=== PATIENT | male | born 1960 | race Caucasian/White ===

== ENCOUNTER 2021-08-17 18:26 | Emergency (ER) | payer MEDICARE, SELFPAY ==
[2021-08-17 19:26] VITALS: BP 147/85; PULSE 81; RESP 16; TEMP 36.6; O2SAT 100
--- NOTE | 2021-08-17 20:24 | ED.URI ---
HPI - URI/Sore Throat General Chief Complaint: Upper Respiratory Infection Stated Complaint: deep cough Time Seen by Provider: 08/17/21 20:20 Source: patient and RN notes reviewed Mode of arrival: ambulatory Limitations: no limitations History of Present Illness HPI Narrative: Patient presents today with a 3-day history of chest congestion and cough, fever up to 101. Denies sore throat, congestion, rhinorrhea, shortness of breath. He has been taking Tessalon Perles and Robitussin with some relief. He had a positive COVID-19 exposure from his [id number]. MD elicited complaint: fever, cough and nasal congestion Related Data Home Medications Medication Instructions Recorded Confirmed clonazepam 0.5 mg PO DAILY 08/17/21 08/17/21 cyclobenzaprine 5 mg PO TID PRN 08/17/21 08/17/21 fluoxetine 20 mg PO DAILY 08/17/21 08/17/21 hydrocodone-acetaminophen 1 tablet PO TID PRN 08/17/21 08/17/21 lamotrigine 200 mg PO TID 08/17/21 08/17/21 simvastatin 20 mg PO DAILY 08/17/21 08/17/21 Allergies Allergy/AdvReac Type Severity Reaction Status Date / Time No Known Allergies Allergy Verified 08/17/21 20:23 Review of Systems Review of Systems: CONSTITUTIONAL: Denies body aches, chills, or sweats.+ Fever EYES: Denies visual changes, redness, or discharge. ENT: Denies rhinorrhea, sore throat, or otalgia.+ Congestion CARDIOVASCULAR: Denies chest pain, palpitations, or edema. RESPIRATORY: Denies dyspnea.+ Cough, chest congestion GASTROINTESTINAL: Denies abdominal pain, nausea, vomiting, or diarrhea. GENITOURINARY: Denies dysuria or hematuria. SKIN: Denies rash, itching, or wounds. MUSCULOSKELETAL: Denies back pain, joint pain, or myalgia. NEUROLOGIC: Denies headache, numbness, tingling, or weakness. PSYCH: Denies depression or anxiety. PMFSH Comments At time of signature, I have reviewed and agree with nursing past medical, surgical, social and family history unless otherwise noted. Please see nursing chart for further information. There is no relevant family history pertinent to the presenting complaint Exam Narrative: GENERAL: Well-appearing, well-nourished, and in no acute distress. HEAD: Normocephalic, atraumatic. EYES: EOMI. No redness or drainage. Conjunctivae normal. ENT: Mucous membranes pink and moist. Nares clear. No rhinorrhea. TMs normal bilaterally. Throat normal. Uvula midline. NECK: Normal AROM. Supple. No lymphadenopathy. CHEST: No respiratory distress. Clear to auscultation. HEART: Regular rate and rhythm. No murmur appreciated. Normal peripheral pulses. EXTREMITIES: Normal range of motion. No edema. SKIN: Warm, dry, no rash. Capillary refill normal. Normal skin turgor. NEURO: No focal deficits. Alert and oriented x3. Gait steady. PSYCH: Normal affect. No signs of depression or anxiety. Course Course Level of Care: Express Care Visit Vital Signs Vital signs: Vital Signs Temperature 98 F 08/17/21 19:26 Pulse Rate 81 08/17/21 19:26 Respiratory Rate 16 08/17/21 19:26 Blood Pressure 147/85 H 08/17/21 19:26 Pulse Oximetry 100 08/17/21 19:26 Temperature 98 F 08/17/21 19:26 Pulse Rate 81 08/17/21 19:26 Respiratory Rate 16 08/17/21 19:26 Blood Pressure 147/85 H 08/17/21 19:26 Pulse Oximetry 100 08/17/21 19:26 Reviewed. Pt has been instructed to follow up with his PCP regarding his elevated blood pressure today. MDM - URI/Sore Throat Differential Diagnosis Differential diagnosis: Likely upper respiratory infection, viral infection, bronchitis and other (COVID-19) Lab Data Attestation: I reviewed the patient's lab results. Labs: Lab Results 08/17/21 Range/Units 19:30 POC SARS CoV-2 Ag Positive (Negative) Critical Care Time Critical Care Time Critical Care Time: No Discharge Plan Discharge Clinical Impression: COVID-19 Patient Disposition: Home, Self-Care Condition: Stable Instructions: COVID-19 (Coronavirus Disease 2019) (ED) Ad
== END 2021-08-17 20:30 | disposition home or self-care (01) ==
PROVIDERS: Emergency Provider Nurse Practitioner; PCP Internal Medicine
DX: U07.1 COVID-19 (principal); G40.909 Epilepsy, unspecified, not intractable, without status epilepticus; E78.00 Pure hypercholesterolemia, unspecified; M48.00 Spinal stenosis, site unspecified
CPT/HCPCS: 87426; 99213; C9803; G0463

== ENCOUNTER 2022-02-07 08:16 | Emergency (ER) | payer MEDICARE, SELFPAY ==
[2022-02-07 08:22] VITALS: BP 138/95; PULSE 75; RESP 20; TEMP 37.1; O2SAT 100
--- NOTE | 2022-02-07 08:39 | ED.URI ---
HPI - URI/Sore Throat General Chief Complaint: Upper Respiratory Infection Stated Complaint: Cough/Sore Throat Time Seen by Provider: 02/07/22 08:40 Source: patient and RN notes reviewed Mode of arrival: ambulatory Limitations: no limitations History of Present Illness HPI Narrative: 61-year-old male presented for complaints of sore throat. He endorses COVID exposure 6 days ago, patient's symptoms started 2 days ago. Denies cough, shortness of breath, nausea, vomiting, diarrhea, fevers or chills. He is not taking anything for symptoms. MD elicited complaint: cough Related Data Home Medications Medication Instructions Recorded Confirmed clonazepam 0.5 mg tablet 0.5 mg PO DAILY 08/17/21 08/17/21 cyclobenzaprine 5 mg tablet 5 mg PO TID PRN Muscle Pain 08/17/21 08/17/21 fluoxetine 20 mg capsule 20 mg PO DAILY 08/17/21 08/17/21 hydrocodone 5 mg-acetaminophen 325 1 tablet PO TID PRN Pain 08/17/21 08/17/21 mg tablet lamotrigine 200 mg tablet 200 mg PO TID 08/17/21 08/17/21 simvastatin 20 mg tablet 20 mg PO DAILY 08/17/21 08/17/21 Allergies Allergy/AdvReac Type Severity Reaction Status Date / Time No Known Allergies Allergy Verified 02/07/22 08:42 Review of Systems Review of Systems: CONSTITUTIONAL: Denies malaise, chills, sweats, fever EYES: Denies visual changes, redness, or discharge ENT: Reports rhinorrhea, congestion, sore throat CARDIOVASCULAR: Denies chest pain, palpitations, edema RESPIRATORY: Denies dyspnea GASTROINTESTINAL: Denies abdominal pain, nausea, vomiting, diarrhea SKIN: Denies rash or itching MUSCULOSKELETAL: Denies Myalgia NEUROLOGIC: Denies headache Exam Narrative: GENERAL: Ill-appearing, nontoxic EYES: conjunctivae clear ENT: Mucous membranes moist. CHEST: Clear to auscultation, breath sounds equal. No wheezing, rhonchi, rales, or stridor. HEART: Regular rate and rhythm. No murmur heard. SKIN: Warm, dry, no rash. NEURO: Alert and oriented x3. PSYCH: Normal mood and affect Course Course Emergency Course: Patient is aware of diagnosis, understands and agrees to treatment plan. Anticipatory guidance given. Patient agrees to follow-up as directed and is aware of reasons to seek care at the emergency department. Portions of this record may have been created with voice recognition software Level of Care: Express Care Visit Vital Signs Vital signs: Vital Signs Temperature 98.7 F 02/07/22 08:22 Pulse Rate 75 02/07/22 08:22 Respiratory Rate 20 02/07/22 08:22 Blood Pressure 138/95 H 02/07/22 08:22 Pulse Oximetry 100 02/07/22 08:22 Oxygen Delivery Room Air 02/07/22 08:22 Temperature 98.7 F 02/07/22 08:22 Pulse Rate 75 02/07/22 08:22 Respiratory Rate 20 02/07/22 08:22 Blood Pressure 138/95 H 02/07/22 08:22 Pulse Oximetry 100 02/07/22 08:22 Oxygen Delivery Room Air 02/07/22 08:22 reviewed MDM - URI/Sore Throat MDM Narrative Medical decision making narrative: Strep negative, COVID positive. Advised supportive measures and signs/symptoms to go to the ER. Pt is appropriate for outpt treatment and f/u. Differential Diagnosis Differential diagnosis: Likely upper respiratory infection, sinusitis, viral infection and pharyngitis Lab Data Labs: Strep Screen Presumptive Negative *(Reference Range: Negative)* Discharge Plan Discharge Clinical Impression: COVID-19 Patient Disposition: Home, Self-Care Condition: Stable Instructions: Antibiotic Form, COVID-19 (Coronavirus Disease 2019) (ED) Additional Instructions: Your rapid COVID test was positive today. The following recommendations have been made by the CDC and local Health Departments, regarding COVID-19: -Those individuals with mild cases of COVID-19 can generally be discontinued from isolation 5 days AFTER the onset of symptoms AND the resolution of fever for 24hrs (without the use of fever-reducing medications)* -
== END 2022-02-07 09:00 | disposition home or self-care (01) ==
PROVIDERS: Emergency Provider Nurse Practitioner Family; PCP Internal Medicine
DX: U07.1 COVID-19 (principal)
CPT/HCPCS: 87081; 87426; 87880; 99213; C9803; G0463

== ENCOUNTER 2022-02-26 10:01 | Emergency (ER) | payer MEDICARE, SELFPAY ==
--- NOTE | ~2022-02-26 | XR_ITS ---
EXAMINATION: XR chest 1V portable 02/26/2022 11:08 INDICATION: Shortness of breath PROCEDURE: AP portable chest COMPARISON: No prior studies for comparison. FINDINGS: The lungs are clear. The cardiomediastinal silhouette is within normal limits. There are no pleural effusions. There is no pneumothorax suspected. IMPRESSION: 1: NO ACUTE CARDIOPULMONARY DISEASE. Reviewed, dictated and finalized at location L.
--- NOTE | ~2022-02-26 | CT_ITS ---
EXAMINATION: CT BRAIN W/O DATE: 02/26/2022 11:08 INDICATION: Near syncope. Head injury. Diaphoresis. TECHNIQUE: Computed tomography (CT) of the head was performed without intravenous contrast. The dose- length product was 529.67 mGy-cm. Automated exposure control and iterative reconstruction technique w ere employed. COMPARISON: No prior studies for comparison. FINDINGS: There is encephalomalacia of the frontal lobes bilaterally, likely posttraumatic. No acute infarction, hemorrhage, mass or mass effect. There are surgical changes of the lateral wall of the ri ght orbit. No ventriculomegaly or midline shift. Midline sagittal images demonstrate a normal corpus callosum, c raniovertebral junction and sella turcica. Basilar cisterns are patent. Paranasal sinuses and mastoids are pneumatized. No depressed skull fractures. IMPRESSION: 1. No acute intracranial abnormality. 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 Reviewed, dictated and finalized at location L.
--- NOTE | ~2022-02-26 | CT_ITS ---
EXAMINATION: CT lumbar spine wo con DATE: 02/26/2022 11:08 INDICATION: Chronic low back pain TECHNIQUE: Computed tomography (CT) of the lumbar spine was performed without intravenous contrast. A utomated exposure control and iterative reconstruction technique were employed. The dose-length produ ct was 513.80 mGy-cm. COMPARISON: None FINDINGS: Normal alignment. Chronic appearing minimal anterior wedging at T11 and T12. No acute fracture. Promi nent Schmorl's node along the anterior aspect of the superior endplate of L4. Smaller Schmorl's nodes along the inferior endplate of L3 and at both sides of the L4-L5 disc space. There is a 2.[address] well-defined lytic lesion occupying a significant portion of the posterior aspect of the L5 verte bral body with narrow zone of transition and central macroscopic fat attenuation strongly favoring a benign etiology potentially related to an old Schmorl's node arising from the superior endplate. Josephine re disc height loss with Modic type III chronic endplate changes at L4-L5. Moderate disc height loss at L2-L3 and L3-L4. Mild disc height loss at T10-T11 and T11-T12. Multiple diverticula along the visu alized sigmoid colon without adjacent inflammatory change to suggest diverticular colitis. Paraverteb ral soft tissues are unremarkable. The following disc levels are specifically discussed: T10-T11: Disc is minimally bulging. There is mild bilateral facet joint osteoarthritis. There is no n eural foraminal stenosis. There is no central canal stenosis. T111-T2: Disc is minimally bulging. There is moderate left and mild to moderate right facet joint ost eoarthritis. There is no neural foraminal stenosis. There is no central canal stenosis. T12-L1: Disc is minimally bulging. There is moderate bilateral facet joint osteoarthritis. There is n o neural foraminal stenosis. There is no central canal stenosis. L1-L2: Disc is mildly bulging. There is moderate bilateral facet joint osteoarthritis. There is mild right neural foraminal stenosis. There is mild central canal stenosis. L2-L3: Disc is bulging. There is left and moderate right facet joint osteoarthritis. There is moderat e bilateral neural foraminal stenosis. There is mild to moderate central canal stenosis. L3-L4: Disc is bulging. There is mild bilateral facet joint osteoarthritis. There is mild bilateral n eural foraminal stenosis. There is mild central canal stenosis. L4-L5: Disc is bulging. There is mild bilateral facet joint osteoarthritis. There is moderate bilater al neural foraminal stenosis. There is mild to moderate central canal stenosis. L5-S1: Minimal central disc protrusion. There is mild bilateral facet joint osteoarthritis. There is mild left and mild to moderate right neural foraminal stenosis. There is no central canal stenosis. IMPRESSION: 1. Lumbar spondylosis, severe at L4-L5 and otherwise mild to moderate. Reviewed, dictated and finalized at location A.
[2022-02-26 10:09] VITALS: BP 108/70; PULSE 65; RESP 20; TEMP 36.6; O2SAT 99
--- NOTE | 2022-02-26 10:23 | ECG_ITS ---
Measurements Intervals [place] Rate: 70 P: 76 NC: 166 QRS: 83 QRSD: 108 T: 68 QT: 411 QTc: 443 Interpretive Statements SINUS RHYTHM BASELINE ARTIFACT- I, III, AVL NORMAL ECG Electronically Signed On 02-26-2022 16:27:44 CDT by Maverick Oakley D.O.
--- NOTE | 2022-02-26 10:30 | ED.BACK ---
HPI - Back Pain/Injury General Chief Complaint: Back Pain/Injury Stated Complaint: [facility] Time Seen by Provider: 02/26/22 10:05 Source: patient, EMS and RN notes reviewed Mode of arrival: EMS Limitations: no limitations History of Present Illness MD elicited complaint: back pain and other (pt was very light headed and almost fainted. no acute chest pain or SOB.) Pertinent past history: prior back pain Onset (ago): day(s) (3) Severity: moderate Pain scale (0-10): 6 Similar Symptoms Previously: Yes Quality: dull and aching Location: lumbar spine Radiation: none Exacerbating factors: movement Relieving factors: medication Associated symptoms: denies other symptoms Work related injury: No Related Data Home Medications Medication Instructions Recorded Confirmed clonazepam 0.5 mg tablet 0.5 mg PO DAILY 08/17/21 02/26/22 cyclobenzaprine 5 mg tablet 5 mg PO TID PRN Muscle Pain 08/17/21 02/26/22 fluoxetine 20 mg capsule (Prozac) 20 mg PO DAILY 08/17/21 02/26/22 hydrocodone 5 mg-acetaminophen 325 1 tablet PO TID PRN Pain 08/17/21 02/26/22 mg tablet lamotrigine 200 mg tablet 200 mg PO TID 08/17/21 02/26/22 simvastatin 20 mg tablet 20 mg PO DAILY 08/17/21 02/26/22 fluoxetine 40 mg capsule 40 mg PO DAILY 02/26/22 02/26/22 Allergies Allergy/AdvReac Type Severity Reaction Status Date / Time No Known Allergies Allergy Verified 02/26/22 10:43 Review of Systems Review of Systems: All systems reviewed & are unremarkable except as noted in HPI and below Constitutional: Constitutional: Reports no additional constitutional complaints Eyes: Eyes: Reports no additional eye complaints ENT: Reports system reviewed and no additional complaints, except as documented Cardiovascular: Cardiovascular: Reports no additional cardiovascular complaints Respiratory: Respiratory: Reports no additional respiratory complaints Gastrointestinal: Gastrointestinal: Reports no additional gastrointestinal complaints Musculoskeletal: Musculoskeletal: Reports back pain Integumentary/Breasts: Skin/Breast: Reports system reviewed and no additional complaints, except as docu Neurologic: Reports system reviewed and no additional complaints, except as documented Psychiatric: Psychiatric: Reports no additional psychiatric complaints Endocrine: Endocrine: Reports no additional endocrine complaints Hematologic/Lymphatic: Hematologic/Lymphatic: Reports no additional hematologic/lymphatic complaints Allergic/Immunologic: Allergic/Immunologic: Reports no additional allergic/immunologic complaints PMFSH Past Medical History Medical History Back ache Exam Const: General: healthy appearing and no acute distress Nutritional Appearance: well nourished Orientation/consciousness: patient oriented x3 Limitations: no limitations HENMT: Head: normal to inspection Ears: external ears normal, TM's normal bilaterally and EAC's normal General nose exam: Normal external nose present and Normal nares present Face and sinus: normal facial exam and sinuses nontender Mouth: Yes Normal oral and palatal mucosa present and Yes moist mucous membranes Teeth and gingiva: dentition normal Throat: posterior oropharynx normal Eyes: Conjunctivae: conjunctivae normal Pupils: Equal, round and reactive pupils present EOM: EOMs intact bilaterally Neck: Neck: normal visual inspection, no lymphadenopathy and no meningeal signs Chest: Chest palpation & inspection: normal inspection of the chest Resp: Effort & Inspection: normal respiratory effort Auscultation: clear to auscultation bilaterally Cardio: Rate: regular rate Rhythm: regular rhythm GI: GI Palp: Yes Soft to palpation and No Tenderness to palpation present (GI) Auscultation: normal bowel sounds : General: Yes bladder normal to palpation and Yes no CVA tenderness Back/Spine/Pelvis: Back: no CVA tenderness Other: minimally tend
[2022-02-26 10:33] VITALS: BP 114/77; PULSE 67; RESP 20; TEMP 36.6; O2SAT 99
[2022-02-26 10:44] LABS: Basophils Absolute Auto 0.02 K/mm3 (0.00-0.10); Basophils Percent Auto 0.3 % (0.0-1.0); Eosinophils Absolute Auto 0.01 K/mm3 (0.02-0.50); Eosinophils Percent Auto 0.2 % (1.0-6.0); Hematocrit 35.9 % (40.0-54.0); Hemoglobin 11.8 g/dL (14.0-18.0); Immature Granulocyte Absolute 0.02 K/mm3 (0.00-0.00); Immature Granulocyte Percent A 0.3 % (0.0-0.0); Lymphocytes Absolute Auto 0.66 K/mm3 (1.10-4.50); Lymphocytes Percent Auto 11.1 % (18.0-42.0); Mean Corpuscular HGB Conc 32.9 g/dL (32.0-36.0); Mean Corpuscular Hemoglobin 31.2 pg (27.0-31.0); Mean Platelet Volume 9.6 fl (8.7-11.0); Monocytes Absolute Auto 0.53 K/mm3 (0.10-0.90); Monocytes Percent Auto 8.9 % (2.0-11.0); Neutrophils Absolute Auto 4.7 K/mm3 (1.7-7.2); Neutrophils Percent Auto 79.2 % (50.0-70.0); Platelet Count Result 284 K/mm3 (150-420); Red Blood Count 3.78 M/mm3 (4.70-6.10); Red Cell Distribution Width 12.8 % (11.6-14.4)
[2022-02-26 10:56] LABS: Appearance Urine Clear (Clear); Bilirubin Urine Negative (Negative); Color Urine Light Yellow (Yellow); Glucose Urine UA Negative (Negative); Ketones Urine Negative (Negative); Leukocyte Esterase Ur Negative (Negative); Nitrate Urine Negative (Negative); Protein Urine Negative (Negative); Specific Grav Ur 1.025 (1.010-1.020); Urobilinogen Urine 0.2 mg/dL (0.2-1.0)
[2022-02-26 11:00] LABS: Add Urine Microscopic? YES; Blood Urine Trace-lysed (Negative); RBC Urine 0-2 /hpf (0-2); WBC Urine None seen /hpf (0-3)
[2022-02-26 11:01] LABS: Bacteria Urine Trace /hpf; Mucus Urine Heavy /lpf
[2022-02-26 11:04] LABS: Lactic Acid Reflex 1.8 mmol/L (0.4-2.0)
[2022-02-26 11:06] LABS: Alanine Aminotransferase 42 U/L (16-63); Albumin Level 3.8 g/dL (3.4-5.0); Alkaline Phosphatase 81 U/L (46-116); Anion Gap 7 mmol/L (8-16); Aspartate Amino Transferase 21 U/L (15-37); Bilirubin,Total 0.3 mg/dL (0.00-1.00); Blood Urea Nitrogen 13 mg/dL (7-18); Calcium 8.8 mg/dL (8.5-10.1); Carbon Dioxide 28 mmol/L (21-32); Chloride 106 mmol/L (98-108); Estimated CRCL calculation 60 ml/min; Estimated Glomerular Filt Rate 57; Ethanol < 3 mg/dL (0-6); Glucose 100 mg/dL (70-99); Osmolality Calculated 292 mOsm/kg (285-295); Potassium 3.7 mmol/L (3.5-5.1); Sodium 141 mmol/L (136-145); Total Protein 6.4 g/dL (6.4-8.2); Troponin I 7.4 ng/L (0.00-60.4)
[2022-02-26] MEDS: SODIUM CHLORIDE 0.9% IV 1,000 ML 999 ML IV CONT (11:06)
[2022-02-26] MEDS: KETOROLAC (*BKC) 60 MG/2 ML VIAL IM (11:07)
[2022-02-26 11:10] LABS: Amphetamine Screen Urine Negative (Negative); Barbiturate Screen Urine Negative (Negative); Benzodiazepines Screen Urine Negative (Negative); Cannabinoid Screen Urine Negative (Negative); Cocaine Screen Urine Negative (Negative); Methadone Screen Urine Negative (Negative); Opiate Screen Urine Positive (Negative); Phencyclidine Screen Urine Negative (Negative)
[2022-02-26 12:45] VITALS: BP 123/67; PULSE 74; RESP 20; TEMP 36.7; O2SAT 99
== END 2022-02-26 13:04 | disposition home or self-care (01) ==
PROVIDERS: Emergency Provider Emergency Medicine; PCP Internal Medicine
DX: M54.9 Dorsalgia, unspecified (principal); M54.16 Radiculopathy, lumbar region
CPT/HCPCS: 36415; 70450; 71045; 72131; 80053; 80307; 81001; 83605; 84484; 85025; 93005; 96360; 96372; 99284; J1885; J7030

== ENCOUNTER 2022-03-17 10:42 | Emergency (ER) | payer MEDICARE, SELFPAY ==
[2022-03-17 10:45] VITALS: BP 124/89; PULSE 69; RESP 28; TEMP 35.8; O2SAT 100
--- NOTE | 2022-03-17 10:52 | ED.BACK ---
HPI - Back Pain/Injury General Chief Complaint: Back Pain/Injury Stated Complaint: BACK PAIN Time Seen by Provider: 03/17/22 10:44 Source: patient and RN notes reviewed Mode of arrival: wheelchair Limitations: no limitations History of Present Illness HPI Narrative: patient has a history of chronic back pain. He was here 3 weeks ago for the same and had a CT scan. He has an appointment with orthopedic physician to be considered for MRI and further evaluation of his chronic pain. He took hydrocodone at home today but it did not help so he came in for pain control. MD elicited complaint: back pain Pertinent past history: prior back pain Onset (ago): week(s) (3) Timing: constant Severity: severe Similar Symptoms Previously: Yes Quality: sharp, aching and spasming Location: right lower back Radiation: none Exacerbating factors: movement Relieving factors: none Context: bending Associated symptoms: denies other symptoms Treatments prior to arrival: prescription analgesics Related Data Home Medications Medication Instructions Recorded Confirmed clonazepam 0.5 mg tablet 0.5 mg PO DAILY 08/17/21 03/17/22 cyclobenzaprine 5 mg tablet 5 mg PO TID PRN Muscle Pain 08/17/21 03/17/22 fluoxetine 20 mg capsule (Prozac) 20 mg PO DAILY 08/17/21 03/17/22 hydrocodone 5 mg-acetaminophen 325 1 tablet PO TID PRN Pain 08/17/21 03/17/22 mg tablet lamotrigine 200 mg tablet 200 mg PO TID 08/17/21 03/17/22 simvastatin 20 mg tablet 20 mg PO DAILY 08/17/21 03/17/22 fluoxetine 40 mg capsule 40 mg PO DAILY 02/26/22 03/17/22 Allergies Allergy/AdvReac Type Severity Reaction Status Date / Time No Known Allergies Allergy Verified 03/17/22 10:54 Review of Systems Review of Systems: All systems reviewed & are unremarkable except as noted in HPI and below PMFSH Past Medical History Medical History (Updated 03/17/22 @ 12:50 by Phillip Jesus MD) Back ache Hyperlipidemia Surgical History Surgical History (Updated 03/17/22 @ 12:48 by Phillip Jesus MD) No pertinent past surgical history Social History Social History (Updated 03/17/22 @ 12:49 by Phillip Jesus MD) Smoking status: Never smoker Exam Const: General: no acute distress, alert and ill appearing acutely Nutritional Appearance: well nourished Orientation/consciousness: patient oriented x3 HENMT: Head: normal to inspection Ears: external ears normal Eyes: Conjunctivae: conjunctivae normal Pupils: Equal, round and reactive pupils present EOM: EOMs intact bilaterally Neck: Neck: normal visual inspection Resp: Effort & Inspection: normal respiratory effort Auscultation: clear to auscultation bilaterally Cardio: Rate: regular rate Rhythm: regular rhythm GI: GI Palp: Yes Soft to palpation and No Tenderness to palpation present (GI) Auscultation: normal bowel sounds Back/Spine/Pelvis: Cervical Spine: cervical ROM normal Thoracic/Lumbar Spine: paraspinal muscle tenderness on the right (severe) in the lower lumbar, thoraco-lumbar ROM limited with forward flexion, with lateral flexion to the right, with lateral flexion to the left, with rotation to the right and with rotation to the left, thoraco-lumbar spasm on the right in the lower lumbar and lumbar spinal tenderness at L4 and at L5 Skin: General skin exam: normal color Rashes: no rashes Neuro: General: patient oriented x3, moves all extremities, no focal motor deficits and CN's II-XI intact bilaterally Speech: normal speech Gait exam (Neuro): Normal gait present Extrem: General: normal to inspection and no clubbing, cyanosis or edema Psych: Mental Status: mental status grossly normal Affect: normal affect Attitude: cooperative Course Course Emergency Course: not much relief after Toradol and Flexeril. Finally dilaudid was used to which gave him some pain relief. I am going to add gabapentin to his regimen and then he will follow up with primary care physician for further evaluation with Orthopedic
[2022-03-17] MEDS: ORPHENADRINE CITRATE 30 MG/ML 2 ML VIAL 60 MG IM (11:11)
[2022-03-17] MEDS: KETOROLAC (*BKC) 60 MG/2 ML VIAL IM (11:12)
[2022-03-17 12:05] VITALS: BP 132/95; PULSE 85; O2SAT 100
[2022-03-17] MEDS: HYDROmorphone HCL INJ (*CRX) 2 MG/ML VIAL 1 MG IM (12:22)
[2022-03-17 12:53] VITALS: BP 118/83; PULSE 72; RESP 20; TEMP 36.5; O2SAT 99
== END 2022-03-17 13:03 | disposition home or self-care (01) ==
PROVIDERS: Emergency Provider Emergency Medicine; PCP Internal Medicine
DX: M54.41 Lumbago with sciatica, right side (principal)
CPT/HCPCS: 96372; 99284; J1170; J1885; J2360